=== PATIENT | female | born 1995 | race Caucasian/White ===

== ENCOUNTER 2016-09-07 20:15 | Inpatient (IN) ==
[2016-09-07 20:32] LABS: URINE SOURCE VOIDED
[2016-09-07 20:39] LABS: BILIRUBIN URINE NEGATIVE (NEGATIVE); BLOOD URINE 3+ (NEGATIVE); CLARITY CLEAR (CLEAR); COLOR YELLOW; GLUCOSE URINE NEGATIVE (NEGATIVE); LEUKOCYTES URINE 1+ (NEGATIVE); NITRITE URINE NEGATIVE (NEGATIVE); PROTEIN URINE NEGATIVE (NEGATIVE); SP GRAVITY URINE 1.015; UROBILINOGEN URINE NORMAL
[2016-09-07] MEDS ORDERED: STADOL IV PRN (21:45)
[2016-09-07] MEDS: LR 1,000 ML IV SCH (21:50)
[2016-09-07] MEDS ORDERED: ZOFRAN IV PRN (21:59)
[2016-09-07 22:01] LABS: BASO% 0.2 % (0.0-0.8); EOS# 0.06 X1000 (0.0-0.7); EOS% 0.4 % (0.0-10.0); HEMATOCRIT 31.5 % (37.0-47.0); HEMOGLOBIN 10.2 g/dL (12.0-16.0); IMM GRAN# 0.19 X1000 (0.0-0.04); IMM GRAN% 1.4 % (0.0-0.5); LYMPH# 1.94 X1000 (1.2-3.4); LYMPH% 14.3 % (20.5-51.1); MANUAL DIFF NEEDED? NO; MCH 24.1 PG (27-31); MCHC 32.4 g/dL (33-37); MCV 74.3 FL (81-99); MONO# 1.63 X1000 (0.11-0.59); MPV 9.6 FL (7.4-10.4); NEUT% 71.7 % (42.2-75.2); PLT 222 X1000 (130-400); RBC 4.24 XMIL (4.2-5.4)
[2016-09-07] MEDS: STADOL IV PRN (22:09)
[2016-09-08] MEDS: STADOL IV PRN (01:04)
[2016-09-08] MEDS: LR 1,000 ML IV SCH (01:07)
[2016-09-08] MEDS ORDERED: KEFZOL 1 GM/D5W 1 GM/50 ML IVPB IV PRN (02:46)
[2016-09-08] MEDS ORDERED: AMPICILLIN 2 GM/NS 2 GM/100 ML IVPB IV ONE (02:46)
[2016-09-08] MEDS ORDERED: TYLENOL PO PRN (02:46)
[2016-09-08] MEDS ORDERED: REGLAN PO ONE (02:46)
[2016-09-08] MEDS ORDERED: PEPCID PO PRN (02:46)
[2016-09-08] MEDS ORDERED: LR 1,000 ML IV SCH (02:46)
[2016-09-08] MEDS ORDERED: PITOCIN 30 UNITS/LR 30 UNITS/500 ML IV.SOLN IV SCH (02:46)
[2016-09-08] MEDS ORDERED: PEPCID PO ONE (02:46)
[2016-09-08] MEDS ORDERED: ZOFRAN IV PRN (02:46)
[2016-09-08] MEDS ORDERED: PEPCID IV PRN (02:46)
[2016-09-08] MEDS ORDERED: STADOL IV PRN (02:46)
[2016-09-08] MEDS ORDERED: SODIUM CHLORIDE 0.9% INJ SCH (03:00)
[2016-09-08] MEDS ORDERED: PITOCIN 20 UNITS/LR 20 UNITS/1,000 ML IV.SOLN ONE (03:16)
[2016-09-08] MEDS ORDERED: MINERAL OIL ONE (03:16)
[2016-09-08] MEDS ORDERED: XYLOCAINE-MPF 1% ONE (03:16)
[2016-09-08] MEDS ORDERED: HYDROXYZINE IM PRN (03:41)
[2016-09-08] MEDS ORDERED: PITOCIN IM PRN (03:41)
[2016-09-08] MEDS ORDERED: BENADRYL PO PRN (03:41)
[2016-09-08] MEDS ORDERED: HYDROXYZINE PO PRN (03:41)
[2016-09-08] MEDS ORDERED: CYTOTEC PO PRN (03:41)
[2016-09-08] MEDS ORDERED: PITOCIN 20 UNITS/LR 20 UNITS/1,000 ML IV.SOLN IV SCH (03:41)
[2016-09-08] MEDS ORDERED: XYLOCAINE-MPF 1% INJ PRN (03:41)
[2016-09-08] MEDS ORDERED: BENADRYL IV PRN (03:41)
[2016-09-08] MEDS ORDERED: PITOCIN 30 UNITS/LR 30 UNITS/500 ML IV.SOLN IV ONE (03:41)
[2016-09-08] MEDS ORDERED: MINERAL OIL PO PRN (03:41)
[2016-09-08] MEDS ORDERED: M-M-R II VACCINE SUBQ ONE (03:41)
[2016-09-08] MEDS ORDERED: PERI MEDS (DERMOPLAST/NUPERCAINAL/TUCKS) MISC PRN (03:41)
[2016-09-08] MEDS ORDERED: AMBIEN PO PRN (03:41)
[2016-09-08] MEDS ORDERED: BOOSTRIX VACCINE IM ONE (03:41)
[2016-09-08] MEDS ORDERED: NORCO-5 PO PRN (03:41)
--- NOTE | 2016-09-08 04:18 | OPERATIVE NOTE ---
PROCEDURE DATE: 09/08/2016 PROCEDURE: This is a vaginal delivery. DESCRIPTION OF PROCEDURE: The patient underwent sterile controlled spontaneous vaginal delivery of a viable male infant, weighing 6 pounds 7 ounces with Apgars of 8 and 9. No nuchal, no dystocia. Cord doubly clamped and cut, and was handed off. Cord blood was obtained. Placenta delivered spontaneously intact. Uterus firm with Pitocin and massage. Uterus, cervix, vagina explored. No lacerations noted. ESTIMATED BLOOD LOSS: 250 mL. cc: Sandra Matias MD
[2016-09-08] MEDS ORDERED: NORCO-10 ONE (04:23)
[2016-09-08] MEDS ORDERED: AMPICILLIN 2 GM/NS 2 GM/100 ML IVPB ONE (04:23)
[2016-09-08] MEDS ORDERED: PITOCIN 30 UNITS/LR 30 UNITS/500 ML IV.SOLN ONE (04:23)
[2016-09-08] MEDS ORDERED: MOTRIN ONE (04:23)
[2016-09-08] MEDS: MOTRIN PO PRN ×2 (04:25→19:40)
[2016-09-08] MEDS: NORCO-10 PO PRN ×3 (04:25→12:10)
[2016-09-08] MEDS ORDERED: AMPICILLIN 1 GM/NS 1 GM/50 ML IVPB IV SCH (06:47)
[2016-09-08] MEDS ORDERED: PERI MEDS (DERMOPLAST/NUPERCAINAL/TUCKS) ONE (12:47)
[2016-09-08] MEDS: PERICOLACE PO SCH (20:24)
[2016-09-09] MEDS: NORCO-10 PO PRN ×3 (00:25→20:12)
[2016-09-09 06:30] LABS: HEMATOCRIT 27.6 % (37.0-47.0); HEMOGLOBIN 8.8 g/dL (12.0-16.0); MCHC 31.9 g/dL (33-37); MCV 75.2 FL (81-99); MPV 9.9 FL (7.4-10.4); RBC 3.67 XMIL (4.2-5.4)
[2016-09-09] MEDS: MOTRIN PO PRN ×2 (09:53→20:12)
[2016-09-09] MEDS: PERICOLACE PO SCH (20:12)
[2016-09-10] MEDS: MOTRIN PO PRN (05:48)
[2016-09-10] MEDS: NORCO-10 PO PRN (05:49)
[2016-09-10 08:30] VITALS: BP 104/69
--- NOTE | 2016-09-10 16:11 | DISCHARGE SUMMARY ---
ADMISSION DATE: 09/08/2016 DISCHARGE DATE: 09/10/2016 ADMITTING DIAGNOSIS: Term , labor. DISCHARGE DIAGNOSIS: Term , delivered. CONDITION: Stable. DIET: As tolerated. ACTIVITY: Routine . MEDICATIONS: Grady 5, vitamins with iron, over the counter stool softeners and nonsteroidals as needed. She is to follow up in [address] Carrera. HOSPITAL COURSE: Please refer to Ms. Zamora's records and delivery note. She presented and had a vaginal delivery. Since that time, she has ambulated and voided, tolerating p.o. and currently day 2, desiring discharge. PHYSICAL EXAMINATION: Vital Signs: Stable. She is afebrile. General: She is alert and cooperative, no distress. Neck: Supple. Lungs: Clear. Heart: Regular sinus rhythm. Abdomen: Slightly distended. : Uterus is firm. Extremities: No cyanosis, clubbing, or edema in her extremities. LABORATORY: Hemoglobin 8.8. DISCHARGE INSTRUCTIONS: We will discharge with above instructions. cc: MD Sandra Haskins MD
== END 2016-09-10 11:15 | disposition home or self-care (01) ==
LOC: P.OPLD 20:15 → P.LD 20:17 → P.WC 09-09 11:46
PROVIDERS: ADMIT Obstetrics & Gynecology; ATTEND Obstetrics & Gynecology

== ENCOUNTER 2018-11-14 22:56 | Inpatient (IN) ==
[2018-11-14 23:21] LABS: URINE SOURCE VOIDED
[2018-11-14 23:30] LABS: BILIRUBIN URINE NEGATIVE (NEGATIVE); BLOOD URINE NEGATIVE (NEGATIVE); CLARITY CLEAR (CLEAR); COLOR YELLOW; GLUCOSE URINE NEGATIVE (NEGATIVE); KETONE URINE TRACE mg/dL (NEGATIVE); LEUKOCYTES URINE TRACE (NEGATIVE); NITRITE URINE NEGATIVE (NEGATIVE); PH URINE 6.5; PROTEIN URINE 1+(30 mg/dL) mg/dL (NEGATIVE); UROBILINOGEN URINE 1 mg/dL
[2018-11-14 23:35] LABS: UR AMPHETAMINES QUAL NONE DETECTED (NONE DETECT); UR BARBITUATES QUAL PRESUMPTIVE POSITIVE (NONE DETECT); UR BENZODIAZEPIN QUAL NONE DETECTED (NONE DETECT); UR CANNABINOIDS QUAL NONE DETECTED (NONE DETECT); UR COCAINE QUAL NONE DETECTED (NONE DETECT); UR METHADONE QUAL NONE DETECTED (NONE DETECT); UR METHAMPHETAMINE QUAL NONE DETECTED (NONE DETECT); UR OPIATES QUAL NONE DETECTED (NONE DETECT); UR OXYCODONE QUAL NONE DETECTED (NONE DETECT); UR PCP QUAL NONE DETECTED (NONE DETECT); UR PROPOXYPHENE QUAL NONE DETECTED (NONE DETECT); UR TCA QUAL NONE DETECTED (NONE DETECT)
[2018-11-15] MEDS ORDERED: PEPCID PO PRN (00:10)
[2018-11-15] MEDS ORDERED: KEFZOL 1 GM/D5W 1 GM/50 ML IVPB IV PRN (00:10)
[2018-11-15] MEDS ORDERED: REGLAN PO ONE (00:10)
[2018-11-15] MEDS ORDERED: STADOL IV PRN (00:10)
[2018-11-15] MEDS ORDERED: TYLENOL PO PRN (00:10)
[2018-11-15] MEDS ORDERED: ZOFRAN IV PRN (00:10)
[2018-11-15] MEDS ORDERED: PEPCID IV PRN (00:10)
[2018-11-15] MEDS ORDERED: PEPCID PO ONE (00:10)
[2018-11-15] MEDS ORDERED: PITOCIN 30 UNITS/NS 30 UNIT/500 ML IV.SOLN IV SCH (00:15)
[2018-11-15] MEDS ORDERED: SODIUM CHLORIDE 0.9% INJ SCH (00:15)
[2018-11-15] MEDS: LR 1,000 ML IV SCH ×3 (00:51→15:36)
[2018-11-15] MEDS ORDERED: XYLOCAINE-MPF 1% INJ ONE (00:56)
[2018-11-15] MEDS ORDERED: MINERAL OIL MISC ONE (00:56)
[2018-11-15 02:01] LABS: BASO% 0.2 % (0.0-0.8); EOS% 0.3 % (0.0-10.0); HEMATOCRIT 32.8 % (37.0-47.0); HEMOGLOBIN 11.4 g/dL (12.0-16.0); IMM GRAN% 0.5 % (0.0-0.5); LYMPH% 14.1 % (20.5-51.1); MCH 26.6 PG (27-31); MCHC 34.8 g/dL (33-37); MCV 76.6 FL (81-99); MPV 10.1 FL (7.4-10.4); NEUT# 8.53 X1000 (1.4-6.5); NEUT% 75.9 % (42.2-75.2); PLT 217 X1000 (130-400); RBC 4.28 XMIL (4.2-5.4); WBC 11.24 X1000 (4.8-10.8)
[2018-11-15 02:02] LABS: BASO# 0.02 X1000 (0.0-0.2); EOS# 0.03 X1000 (0.0-0.7); IMM GRAN# 0.06 X1000 (0.0-0.04); LYMPH# 1.59 X1000 (1.2-3.4); MONO# 1.01 X1000 (0.11-0.59)
[2018-11-15] MEDS ORDERED: BENADRYL PO PRN (02:42)
[2018-11-15] MEDS ORDERED: HYDROXYZINE IM PRN (02:42)
[2018-11-15] MEDS ORDERED: PERI MEDS (DERMOPLAST/NUPERCAINAL/TUCKS) MISC PRN (02:42)
[2018-11-15] MEDS ORDERED: ATARAX PO PRN (02:42)
[2018-11-15] MEDS ORDERED: BOOSTRIX VACCINE IM ONE (02:42)
[2018-11-15] MEDS ORDERED: AMBIEN PO PRN (02:42)
[2018-11-15] MEDS ORDERED: XYLOCAINE-MPF 1% INJ PRN (02:42)
[2018-11-15] MEDS ORDERED: MINERAL OIL PO PRN (02:42)
[2018-11-15] MEDS ORDERED: CYTOTEC PO PRN (02:42)
[2018-11-15] MEDS ORDERED: NORCO-10 PO PRN (02:42)
[2018-11-15] MEDS ORDERED: BENADRYL IV PRN (02:42)
[2018-11-15] MEDS ORDERED: PITOCIN IM PRN (02:42)
[2018-11-15] MEDS ORDERED: M-M-R II VACCINE SUBQ ONE (02:42)
[2018-11-15] MEDS ORDERED: PITOCIN 20 UNITS/NS 20 UNITS/1,000 ML IV.SOLN IV SCH (02:45)
[2018-11-15] MEDS ORDERED: PITOCIN 20 UNITS/NS 20 UNITS/1,000 ML IV.SOLN ONE (03:01)
--- NOTE | 2018-11-15 03:17 | HISTORY AND PHYSICAL ---
HISTORY OF PRESENT ILLNESS: The patient is a 23-year-old female, G2, P1, at 38 and 5/7 weeks by a 20 week ultrasound scan that presents with complaints of uterine contractions. Patient was noted to be 4 cm dilated. She previously had been 1.5 in the office. care significant for rubella nonimmune status. Group B strep culture was negative and she also was treated for Trichomonas. PAST MEDICAL HISTORY: Unremarkable. PAST SURGICAL HISTORY: None. PAST OBSTETRICAL HISTORY: G2, P1, spontaneous vaginal delivery previously 6 pounds 5 ounces. GYNECOLOGIC HISTORY: Menarche at age 15. REVIEW OF SYSTEMS: Significant for migraines. FAMILY HISTORY: Significant for high blood pressure. SOCIAL HISTORY: Tobacco use 1 pack per day. Alcohol use, none. MEDICATIONS: Fioricet, vitamins and Zofran. ALLERGIES: No known drug allergies. PHYSICAL EXAMINATION: VITAL SIGNS: Height 5 feet 6 inches. Weight 131 pounds. Temperature 97.5 degrees, pulse of 85, respirations 18, blood pressure 126/71. heart rate in the 110s and was noted to be category 1. HEENT: Pupils equal, round, reactive to light and accommodation. Oropharynx, poor dentition was noted. LUNGS: Clear to auscultation. HEART: Regular rate and rhythm. ABDOMEN: Gravid, nontender. GENITOURINARY: Cervix was 6 cm dilated, 70% effaced, -1 station. EXTREMITIES: No clubbing, cyanosis, or edema noted. 2+ DTRs bilaterally. NEUROLOGIC: Cranial nerves 2-12 grossly intact. Motor 5/5. ASSESSMENT AND PLAN: A 23-year-old, 2, para 1, at 38 and 5/7 weeks in active labor. The patient will be admitted. Patient states that she does not want epidural at present time and group B strep culture was noted to be negative. Anticipate spontaneous vaginal delivery. cc: Varghese Mcrae III, MD
--- NOTE | 2018-11-15 03:18 | OPERATIVE NOTE ---
PROCEDURE DATE: 11/15/2018 DELIVERY NOTE: The patient progressed to complete pushing, and then had a spontaneous vaginal delivery of a male , 5 pounds 12 ounces with 's of 9 and 9 at 0225 hours on 11/15/2018 over intact perineum. Cord blood sample was obtained at this time. Placenta was delivered intact with 3-vessel cord. ESTIMATED BLOOD LOSS: 150 mL. ANESTHESIA: IV Stadol. COUNTS: All counts were correct x2. cc: Varghese Mcrae III, MD
[2018-11-15] MEDS: MOTRIN PO PRN ×2 (07:02→15:31)
[2018-11-15] MEDS: NORCO-5 PO PRN (11:40)
[2018-11-15] MEDS: PITOCIN 30 UNITS/NS 30 UNIT/500 ML IV.SOLN IV SCH ×3 (15:36→15:38)
[2018-11-15 20:36] LABS: UR AMPHETAMINES QUAL NONE DETECTED (NONE DETECT); UR BARBITUATES QUAL PRESUMPTIVE POSITIVE (NONE DETECT); UR BENZODIAZEPIN QUAL NONE DETECTED (NONE DETECT)
[2018-11-15 20:37] LABS: UR CANNABINOIDS QUAL NONE DETECTED (NONE DETECT); UR COCAINE QUAL NONE DETECTED (NONE DETECT); UR METHADONE QUAL NONE DETECTED (NONE DETECT); UR METHAMPHETAMINE QUAL NONE DETECTED (NONE DETECT); UR OPIATES QUAL PRESUMPTIVE POSITIVE (NONE DETECT); UR OXYCODONE QUAL NONE DETECTED (NONE DETECT); UR PCP QUAL NONE DETECTED (NONE DETECT); UR PROPOXYPHENE QUAL NONE DETECTED (NONE DETECT); UR TCA QUAL NONE DETECTED (NONE DETECT)
[2018-11-15] MEDS ORDERED: PERICOLACE PO SCH (21:00)
[2018-11-16] MEDS: MOTRIN PO PRN ×2 (05:57→20:11)
[2018-11-16 06:42] LABS: BASO# 0.02 X1000 (0.0-0.2); BASO% 0.2 % (0.0-0.8); EOS# 0.09 X1000 (0.0-0.7); EOS% 0.9 % (0.0-10.0); HEMATOCRIT 31.2 % (37.0-47.0); HEMOGLOBIN 10.2 g/dL (12.0-16.0); IMM GRAN# 0.06 X1000 (0.0-0.04); IMM GRAN% 0.6 % (0.0-0.5); LYMPH# 2.27 X1000 (1.2-3.4); LYMPH% 22.2 % (20.5-51.1); MCH 25.6 PG (27-31); MCHC 32.7 g/dL (33-37); MCV 78.2 FL (81-99); MONO# 1.32 X1000 (0.11-0.59); MONO% 12.9 % (1.7-9.3); NEUT# 6.47 X1000 (1.4-6.5); NEUT% 63.2 % (42.2-75.2); PLT 192 X1000 (130-400); RBC 3.99 XMIL (4.2-5.4); RDW 14.2 % (11.5-14.5); WBC 10.23 X1000 (4.8-10.8)
--- NOTE | 2018-11-16 09:37 | OB/GYN PROGRESS NOTE ---
Progress Note OB - . Patient Problems: Current Active Problems Problem Status Onset (spontaneous vaginal delivery) Acute OB Progress Note: Vital Signs - 24 hr 11/15/18 11:20 11/15/18 15:25 11/15/18 19:59 Temperature 97.3 F L 97.4 F L 97.6 F Pulse Rate 75 86 75 Respiratory Rate 20 18 18 Blood Pressure 115/55 110/77 108/75 O2 Sat by Pulse Oximetry 99 98 11/16/18 05:58 11/16/18 08:00 Temperature 97.0 F L 97 F L Pulse Rate 79 60 Respiratory Rate 18 20 Blood Pressure 124/64 95/53 O2 Sat by Pulse Oximetry 98 Laboratory Results - last 24 hr 11/15/18 11/16/18 19:31 06:14 WBC 10.23 RBC 3.99 L Hgb 10.2 L Hct 31.2 L MCV 78.2 L MCH 25.6 L MCHC 32.7 L RDW Std Deviation 14.2 Plt Count 192 MPV 10.0 Immature Gran % (Auto) 0.6 H Neut % (Auto) 63.2 Lymph % (Auto) 22.2 [place] % (Auto) 12.9 H Eos % (Auto) 0.9 Baso % (Auto) 0.2 Immature Gran # (Auto) 0.06 H Neut # (Auto) 6.47 Lymph # (Auto) 2.27 [place] # (Auto) 1.32 H Eos # (Auto) 0.09 Baso # (Auto) 0.02 Urine Opiates Screen PRESUMPTIVE POSITIVE A Ur Oxycodone Screen NONE DETECTED Urine Methadone Screen NONE DETECTED U Propoxyphene Qual NONE DETECTED Ur Barbituates Screen PRESUMPTIVE POSITIVE A Ur Tricyclics Screen NONE DETECTED Ur Phencyclidine Scrn NONE DETECTED Ur Amphetamines Screen NONE DETECTED U Methamphetamines Scrn NONE DETECTED U Benzodiazepines Scrn NONE DETECTED Urine Cocaine Screen NONE DETECTED U Cannabinoids Screen NONE DETECTED S: Patient without complaints. Denied of fever, chills, N/V, SOB, or chest pain. Voiding without difficulty. Lochia decreasing. Pain minimal and controlled. Breast-feeding without any concerns. Desires Nexplanon for control option. O: Gen: NAD; AAOx3 CV: RRR Pulm: CTAB; no rhonchi, wheezing or rales Abd: soft, non-tender to palpation; non-distended; active bowel sounds; fundus firm and below umbilicus Ext: no LE TTP A&P: 23yo s/p at 38w5d, 1: PPD#1- No concerns -Fe and Vit C started for anemia (secondary to acute blood loss) 2. Rubella NON-immune -MMR booster
[2018-11-16] MEDS: FERROUS SULFATE PO SCH (12:39)
[2018-11-16] MEDS: NORCO-5 PO PRN ×2 (12:40→20:11)
[2018-11-16] MEDS: VITAMIN C PO SCH (13:56)
[2018-11-17] MEDS: NORCO-5 PO PRN ×2 (02:55→08:20)
--- NOTE | 2018-11-17 07:44 | OB/GYN PROGRESS NOTE ---
Progress Note OB - . Patient Problems: Current Active Problems Problem Status Onset (spontaneous vaginal delivery) Acute OB Progress Note: Vital Signs - 24 hr 11/16/18 08:00 11/16/18 14:00 11/16/18 20:00 Temperature 97 F L 97.2 F L 97.2 F L Pulse Rate 60 75 81 Respiratory Rate 20 20 18 Blood Pressure 95/53 100/54 108/58 O2 Sat by Pulse Oximetry 98 98 11/17/18 02:56 Temperature 97.0 F L Pulse Rate 65 Respiratory Rate 18 Blood Pressure 116/62 O2 Sat by Pulse Oximetry HPI: Pt seen and examined. Currently w/o complaints. Pain well controlled. Ambulating and urinating without difficiulty. Tolerating regular diet, Denies N/V. Denies Fever/chills/SOB/CP. Desires Nexplanon for control option. VS: Please see above PHYSICAL EXAM: GEN: NAD; AAOx3 CV: RRR RESP: CTAB; no rhonchi, wheezing or rales ABD: soft, non-tender to palpation; non-distended; active bowel sounds; fundus firm and below umbilicus EXT: no LE TTP A&P: 23yo PPD#2 s/p at 38w5d, -Con't routine PP care -Plan for D/c home today -f/u in office 5 weeks PP for Nexplanon insertion
[2018-11-17 08:14] VITALS: BP 130/83
[2018-11-17] MEDS: FERROUS SULFATE PO SCH (08:17)
[2018-11-17] MEDS: VITAMIN C PO SCH (08:17)
[2018-11-17] MEDS: MOTRIN PO PRN (08:20)
== END 2018-11-17 12:50 | disposition home or self-care (01) | DRG 806 ==
LOC: P.OPLD 22:56 → P.LD 22:57
PROVIDERS: ADMIT Obstetrics & Gynecology; ATTEND Obstetrics & Gynecology
CPT/HCPCS: 59025; 80104; 80301; 80305; 81003; 85025; 86592; 90707; A9270; G0431; G0434; G0477; J0595; J2405; J2590; J7120